=== PATIENT | female | born 1985 | race Caucasian/White ===

== ENCOUNTER 2017-08-07 13:57 | Emergency (ER) | payer OTHER ==
[~2017-08-07] VITALS: Ht 165.1 cm; Wt 68.0 kg
[2017-08-07 14:00] VITALS: BP 122/66
[2017-08-07] MEDS ORDERED: IBUPROFEN 400 MG TABLET ONE (14:30)
[2017-08-07] MEDS: IBUPROFEN 400 MG TABLET PO ONE (14:34)
== END 2017-08-07 15:29 | disposition home or self-care (01) ==
LOC: ER 14:01
DX: J02.9 Acute pharyngitis, unspecified (principal)
CPT/HCPCS: 86403-TC; 87070-TC; A4606; Z7610

== ENCOUNTER 2017-08-11 11:08 | Emergency (ER) | payer OTHER ==
[~2017-08-11] VITALS: Ht 165.1 cm; Wt 68.0 kg
[2017-08-11 11:39] VITALS: BP 118/71
== END 2017-08-11 11:54 | disposition home or self-care (01) ==
LOC: ER 11:09
DX: J02.9 Acute pharyngitis, unspecified (principal)
CPT/HCPCS: 86403-TC; 87070-TC; A4606; Z7610

== ENCOUNTER 2018-03-06 18:22 | Emergency (ER) | payer OTHER ==
[~2018-03-06] VITALS: Ht 165.1 cm; Wt 88.0 kg
--- NOTE | 2018-03-06 18:25 | NUR ---
[id number], came to er c/o on/off left shoulder pain radiates to left arm since [id number] A2. rr is even and unlabored with nad noted. skin is warm and dry. awaiting md for eval. denies any cp or sob.
[2018-03-06 19:04] LABS: BASOPHILS % (AUTO) 0.2 % (0.0-2.0); EOSINOPHILS % (AUTO) 0.5 % (0.0-6.0); HEMATOCRIT 36 % (33-45); HEMOGLOBIN 11.9 g/dL (11.5-14.8); LYMPHOCYTES # (AUTO) 2.4 /CMM (0.8-4.8); LYMPHOCYTES % (AUTO) 20.7 % (20.0-44.0); MEAN CORPUSCULAR HEMOGLOBIN 26 PG (26.0-33.0); MEAN CORPUSCULAR HGB CONC 34 g/dl (31.0-36.0); MEAN CORPUSCULAR VOLUME 79 fL (82-100); MONOCYTES # (AUTO) 0.9 /CMM (0.1-1.30); MONOCYTES % (AUTO) 7.3 % (2.0-12.0); NEUTROPHILS # (AUTO) 8.3 /CMM (1.8-8.9); NEUTROPHILS % (AUTO) 71.3 % (43.0-81.0); PLATELET COUNT (AUTO) 277 /CMM (150-450); RDW COEFFICIENT OF VARIATION 13.6 (11.5-15.0); RED BLOOD CELL COUNT(AUTO) 4.51 MIL/uL (4.0-5.2); WHITE BLOOD COUNT (AUTO) 11.7 K/uL (4.3-11.0)
[2018-03-06 19:14] LABS: CALCIUM, SERUM 8.4 mg/dL (8.5-10.1); CARBON DIOXIDE 25 mmol/L (21-32); CHLORIDE 106 mmol/L (98-107); CREATININE 0.4 mg/dL (0.6-1.3); GLUCOSE 86 mg/dL (74-106); POTASSIUM 3.9 mmol/L (3.5-5.1); SODIUM SERUM 139 mmol/L (136-145); UREA NITROGEN, BLOOD 6 mg/dL (7-18)
[2018-03-06 19:17] LABS: INR 0.94 (0.85-1.15)
[2018-03-06 19:23] LABS: TROPONIN I < 0.017 ng/mL (0.00-0.056)
[2018-03-06 19:42] VITALS: BP 117/70
== END 2018-03-06 19:42 | disposition home or self-care (01) ==
LOC: ER 18:23
DX: O99.89 Other specified diseases and conditions complicating pregnancy, childbirth and the puerperium (principal); M25.512 Pain in left shoulder; Z3A.22 22 weeks gestation of pregnancy
CPT/HCPCS: 36415; 80048; 84484; 85025; 85730; 93005; 93971; 99285; A4606; Z7610